=== PATIENT | male | born 1990 | race Caucasian/White ===

== ENCOUNTER 2019-02-10 17:49 | Emergency (ER) | payer SELFPAY ==
[~2019-02-10] VITALS: Ht 170.2 cm; Wt 84.1 kg
[2019-02-10 18:03] VITALS: TEMP 97.4
[2019-02-10] MEDS ORDERED: ULTRAM 50MG TAB50 MG PO (18:40)
[2019-02-10] MEDS ORDERED: BUSPAR5 MG PO (18:41)
[2019-02-10 19:12] LABS: COLLECTION METHOD CLEAN CATCH
[2019-02-10 19:36] LABS: MUCOUS Present /lpf; PH 6 (5-8); SQUAMOUS EPITHELIAL 0-2 /hpf; URINE APPEARANCE Clear; URINE BACTERIA None Seen /hpf; URINE BILIRUBIN Negative (NEGATIVE); URINE BLOOD Negative (NEGATIVE); URINE COLOR Yellow; URINE GLUCOSE Negative (NEGATIVE); URINE KETONE Trace (NEGATIVE); URINE LEUKOCYTE ESTERASE Negative (NEGATIVE); URINE NITRATE Negative (NEGATIVE); URINE PROTEIN(semi-quant) Negative (NEGATIVE); URINE RBC 0-2 /hpf; URINE UROBILINOGEN Negative (NEGATIVE)
[2019-02-10] MEDS ORDERED: NORCO 325 MG-51 TAB PO (21:33)
[2019-02-10 21:51] VITALS: BP 134/96; PULSE 95
== END 2019-02-10 21:58 | disposition home or self-care (01) ==
LOC: COL.ER 17:49
PROVIDERS: Nurse Practitioner
DX: N50.811 Right testicular pain (principal); F41.9 Anxiety disorder, unspecified; F32.9 Major depressive disorder, single episode, unspecified; G43.909 Migraine, unspecified, not intractable, without status migrainosus; F17.220 Nicotine dependence, chewing tobacco, uncomplicated; Z79.891 Long term (current) use of opiate analgesic
CPT/HCPCS: J1170

== ENCOUNTER 2019-05-03 15:39 | Emergency (ER) | payer SELFPAY ==
[~2019-05-03] VITALS: Ht 170.2 cm; Wt 85.9 kg
[~2019-05-03 15:39] MED LIST: BUSPAR5 MG PO; NORCO 325 MG-51 TAB PO; ULTRAM 50MG TAB50 MG PO
[2019-05-03 16:01] VITALS: BP 136/94; PULSE 92; TEMP 99.1
[2019-05-03] MEDS ORDERED: EFFEXOR XR75 MG/CAP PO (16:06)
[2019-05-03] MEDS ORDERED: EFFEXOR XR37.5 MG/CA PO (16:06)
[2019-05-03] MEDS ORDERED: BUSPAR DIVIDOSE15 MG PO (16:06)
[2019-05-03] MEDS ORDERED: CLEOCIN HCL300 MG PO (16:25)
[2019-05-03] MEDS ORDERED: NORCO 325 MG-51 TAB PO (16:27)
== END 2019-05-03 17:26 | disposition home or self-care (01) ==
LOC: COL.ER 15:39
DX: K02.9 Dental caries, unspecified (principal)
CPT/HCPCS: J1885

== ENCOUNTER 2020-06-14 09:30 | Emergency (ER) | payer BC ==
[~2020-06-14] VITALS: Ht 170.2 cm; Wt 84.1 kg
[~2020-06-14 09:30] MED LIST changes: +BUSPAR DIVIDOSE15 MG PO; +CLEOCIN HCL300 MG PO; +EFFEXOR XR37.5 MG/CA PO; +EFFEXOR XR75 MG/CAP PO
[2020-06-14 09:53] VITALS: TEMP 97.7
[2020-06-14 13:00] VITALS: BP 146/86; PULSE 92
== END 2020-06-14 13:00 | disposition home or self-care (01) ==
LOC: COL.ER 09:30
DX: T20.50XA Corrosion of first degree of head, face, and neck, unspecified site, initial encounter (principal); T32.0 Corrosions involving less than 10% of body surface; T22.511A Corrosion of first degree of right forearm, initial encounter; T22.512A Corrosion of first degree of left forearm, initial encounter; F17.220 Nicotine dependence, chewing tobacco, uncomplicated; F41.9 Anxiety disorder, unspecified; X08.8XXA Exposure to other specified smoke, fire and flames, initial encounter; Y92.009 Unspecified place in unspecified non-institutional (private) residence as the place of occurrence of the external cause